=== PATIENT | male | born 1995 | race Caucasian/White ===

== ENCOUNTER 2025-01-24 23:07 | Emergency (ER) | payer MEDICARE, MEDICAID ==
[~2025-01-24] VITALS: Ht 175.3 cm; Wt 61.7 kg
[~2025-01-24 23:07] MED LIST: IBUP-1984 PO
[2025-01-24 23:22] VITALS: BP 142/83; PULSE 101; RESP 16; O2SAT 98
--- NOTE | 2025-01-25 01:07 | Physician Documentation ---
History of Present Illness ~ Chief Complaint: Laceration Stated Complaint: HAND LAC Time Seen by MD: 00:56 HPI 29-year-old male presenting with a left hand 4th digit laceration. Patient was working with some equipment when he accidentally sliced the dorsal aspect of the finger. It started bleeding any applied pressure and came to the ED. he is not sure if his tetanus is up-to-date. No other complaints. Tetanus Within 5 Years: Yes Medication Reconciliation Allergies: Coded Allergies: No Known Allergies (Unverified , 01/24/25) Scheduled Ibuprofen* (Motrin*), 400 MG PO Q8H Past Medical History Alcohol Use: None Drug Use: none Lives with: Family Lives In: Home Occupation: student, child Physical Exam Vital Signs: Temperature: 97.7, Source: Temporal, Heart Rate: 101, Respiratory Rate: 16, BP: 142/83, Pulse Oximetry: 98, Weight: 61.700 Oxygen Flow Rate: 0 Physical Exam I have reviewed the triage vitals. CONST: Well developed and well nourished. In no acute distress HENT: Head Atraumatic EYES: Pupils are equal, round and reactive to light. Normal conjunctiva NECK: Normal range of motion. Supple. CARDIO: Normal rate and regular rhythm. No murmurs, rubs, or gallops. S1, S2. PULM/CHEST: No respiratory distress. Lungs clear to auscultation. No wheeze ABD: Soft and nontender. Nondistended. Bowel sounds normal. No guarding. : Exam deferred MSK: No edema. No deformity. Left hand 4th digit dorsal aspect with a 1 cm laceration over the PIP joint. NEURO: Alert and oriented to person, place and time. Moving all extremities SKIN: Warm and dry. PSYCH: Normal mood and affect. Good eye contact. Procedures Laceration/Wound Repair Laceration : Anesthesia: Lidocaine w/ Epi Prep: betadine Undermining: none Margins: flaps aligned Foreign Body: not identified Repaired: skin Wound Repaired With: sutures Suture Size/Type: 4-0, ethilon Number of Superficial Sutures: 4 Dressing Applied: simple Tolerated Procedure Well?: yes, no complications Progress Results/Orders Results/Orders Completed Orders - YUNIEL GOODE MD Lidocaine 1% W/Epi 1:100,000 (Xylocaine (01/25/25 01:05) Medical Decision Making Additional Comments 29-year-old male presenting with a left-hand four digit laceration. Laceration repaired please see procedure note. Patient declined tetanus shot. Patient advised to return in two days for a wound check and in 10 days for suture removal. Departure Disposition: HOME / SELF CARE / HOMELESS Impression: Primary Impression: Finger laceration Condition: Stable Discharge Instructions: Laceration Care, Adult, [id number] Additional Instructions: Keep wound clean and dry. Return in two days for a wound check. Return in 10 days for suture removal. Return to the ED sooner with any acutely worsening symptoms such as worsening pain, bleeding from the wound, redness around the wound. Referrals: NO PRIMARY CARE PROVIDER (PCP) Signature Scribe Signature: 1 Attestation: 1 YUNIEL GOODE MD Jan 25, 2025 01:07
[2025-01-25] MEDS: LIDOcaine 1% W/epiNEPHrine 1:100,000 20ml vial SQ ONE (01:22)
[2025-01-25 02:18] VITALS: TEMP 97.7
== END 2025-01-25 02:15 | disposition home or self-care (01) ==
LOC: ER 23:07
DX: S61.215A Laceration without foreign body of left ring finger without damage to nail, initial encounter (principal); W31.89XA Contact with other specified machinery, initial encounter; Y93.89 Activity, other specified; Y92.89 Other specified places as the place of occurrence of the external cause; Y99.8 Other external cause status
CPT/HCPCS: 12001; 99282